=== PATIENT | female | born 1985 | race Caucasian/White ===

== ENCOUNTER 2018-06-01 22:10 | Emergency (ER) | payer BC ==
[2018-06-01] MEDS ORDERED: Sodium Chloride 0.9% 10 ML Syringe FLUSH PRN (22:53)
--- NOTE | 2018-06-01 22:59 | EDM.PDOC ---
ED HPI GENERAL MEDICAL PROBLEM - General Chief Complaint: Chest Pain Stated Complaint: [facility] Time Seen by Provider: 06/01/18 22:32 Source of Information: Reports: Patient, RN Notes Reviewed - History of Present Illness INITIAL COMMENTS - FREE TEXT/NARRATIVE: 32-year-old female with onset of chest discomfort at home a couple of hours ago. She had sudden onset of left upper anterior chest discomfort. In pain with deep breathing, mild shortness of breath. Was given some nitroglycerin and aspirin by EMS in route by ambulance. Did help the discomfort somewhat but she still does rate that at about 4. She is not diabetic, has no known history for hypertension coronary artery disease. She does smoke. No recent cough fever or chills. Treatments OUTSIDE PHYSICAL DAMAGE APPRAISER: Reports: Aspirin, EKG, IV/IO Left Chest Pain Score (Numeric/FACES): 4 - Related Data Allergies Allergy/AdvReac Type Severity Reaction Status Date / Time No Known Allergies Allergy Verified 06/01/18 22:21 Home Meds: Home Meds . [No Known Home Meds] 06/01/18 [History] ED ROS GENERAL - Review of Systems Review Of Systems: See Below Constitutional: Reports: Diaphoresis (Mild,:). Denies: Fever, Chills HEENT: Denies: Sinus Problem, Throat Pain Respiratory: Reports: Shortness of Breath, Pleuritic Chest Pain. Denies: Cough Cardiovascular: Reports: Chest Pain GI/Abdominal: Reports: Nausea, Vomiting (He did have a few dry heaves, that is now better). Denies: Abdominal Pain Musculoskeletal: Denies: Neck Pain, Shoulder Pain, Arm Pain Skin: Denies: Rash Neurological: Reports: Dizziness (Now better) ED EXAM, GENERAL - Physical Exam Exam: See Below General Appearance: Alert, Mild Distress Eye Exam: Bilateral Eye: PERRL Throat/Mouth: Normal Inspection, Normal Oropharynx Head: Atraumatic Neck: Supple, Full Range of Motion. No: Lymphadenopathy (L), Lymphadenopathy (R ) Respiratory/Chest: No Respiratory Distress, Lungs Clear, Normal Breath Sounds, Other (Quite marked tenderness of the left upper anterior chest below the mid clavicle and also the left sternal border). No: Rales, Rhonchi, Wheezing Cardiovascular: Regular Rate, Rhythm GI/Abdominal: Soft, Non-Tender Extremities: Normal Inspection. No: Pedal Edema, Leg Pain, Increased Warmth, Redness Neurological: Alert, Oriented, No Motor/Sensory Deficits Skin Exam: Warm, Dry EKG INTERPRETATION EKG Date: 06/01/18 Rhythm: NSR [place]: Normal P-Wave: Present QRS: Normal ST-T: Other (T-wave inversion noted in lead [address] elevation or depression.) Course - Vital Signs Last Recorded V/S: Last Vital Signs Temp 99.4 F 06/01/18 22:15 Pulse 86 06/01/18 22:15 Resp 18 06/01/18 22:15 BP 128/75 06/01/18 22:15 Pulse Ox 98 06/01/18 22:15 - Orders/Labs/Meds Orders: Active Orders 24 hr Category Date Time Status EKG 12 Lead [EKG Documentation Completion] [RC] STAT Care 06/01/18 22:53 Active Peripheral IV Care [RC] . DIRECTED Care 06/01/18 22:54 Active Chest 1V Frontal [CR] Stat Exams 06/01/18 22:53 Taken Peripheral IV Insertion Adult [OM.PC] Stat Oth 06/01/18 22:53 Ordered Labs: Laboratory Tests 06/01/18 06/01/18 06/01/18 Range/Units 23:05 23:05 23:05 WBC 8.22 (3.98-10.04) K/mm3 RBC 4.56 (3.98-5.22) M/mm3 Hgb 13.2 (11.2-15.7) gm/L Hct 39.8 (34.1-44.9) % MCV 87.3 (79.4-94.8) fl MCH 28.9 (25.6-32.2) pg MCHC 33.2 (32.2-35.5) g/dl RDW Std Deviation 40.1 (36.4-46.3) fL Plt Count 291 (182-369) K/mm3 MPV 9.7 (9.4-12.3) fl Neut % (Auto) 52.6 (34.0-71.1) % Lymph % (Auto) 36.0 (19.3-51.7) % [place] % (Auto) 7.8 (4.7-12.5) % Eos % (Auto) 3.0 (0.7-5.8) Baso % (Auto) 0.6 (0.1-1.2) % Neut # (Auto) 4.32 (1.56-6.13) K/mm3 Lymph # (Auto) 2.96 (1.18-3.74) K/mm3 [place] # (Auto) 0.64 H (0.24-0.36) K/mm3 Eos # (Auto) 0.25 (0.04-0.36) K/mm3 Baso # (Auto) 0.05 (0.01-0.08) K/mm3 D-Dimer, Quantitative < 0.19 L (0.19-0.50) mg/L Sodium 139 (136-145) mEq/L Potassium 3.4 L (3.5-5.1) mEq/L Chloride 106 (98-107) mEq/L Carbon Dioxide 27 (21-32) mEq/L Anion Gap 9.4 (5-15) BUN 8 (7-18) mg/dL Creatinine 0.8 (0.55-1.02) mg/dL Est Cr Clr Drug Dosing 87.99 mL/min Estimated GFR (MDRD) > 60 (>60) mL/min BUN/Creatinine Ratio 10.0 L (14-18) Glucose 122 H (74-106) mg/dL Calcium 8.8 (8.5-10.1) mg/dL Total Bilirubin 0.2 (0.2-1.0) mg/dL AST 21 (15-37) U/L ALT 38 (14-59) U/L Alkaline Phosphatase 65 (46-116) U/L Troponin I < 0.017 (0.00-0.056) ng/mL Total Protein 6.7 (6.4-8.2) g/dl Albumin 3.5 (3.4-5.0) g/dl Globulin 3.2 gm/dL Albumin/Globulin Ratio 1.1 (1-2) Meds: Medications Discontinued Medications Generic Name Dose Route Start Last Admin Trade Name Freq PRN Reason Stop Dose Admin Ketorolac Tromethamine 30 mg 06/01/18 23:00 06/01/18 23:18 Toradol IVPUSH 30 mg ONETIME JEIMY Administration Sodium Chloride 10 ml 06/01/18 22:53 06/01/18 23:21 Saline Flush FLUSH 10 ml ASDIRECTED PRN Administration Keep Vein Open - Re-Assessments/Exams Free Text/Narrative Re-Assessment/Exam: 06/02/18 03:54 D-dimer, troponin did come back normal. EKG did show T-wave inversion in lead 3 , no ST elevation or depression. Sinus rhythm, no ectopy. Other labs were relatively normal. Patient was resting comfortably at time of reexam. Chest x- ray also normal. Discharge instructions as documented. 06/02/18 03:55 Departure - Departure Time of Disposition: 00:35 Disposition: Home, Self-Care 01 Condition: Fair Clinical Impression: Atypical chest pain, Chest wall pain Instructions: Chest Wall Pain, [id number] Referrals: PCP,None [Primary Care Provider] - Forms: ED Department Discharge Additional Instructions: Rest, avoid heavy lifting, you may alternate ice and heat to area of chest discomfort if that returns, Advil or ibuprofen 600 mg 2-3 times daily if needed for further discomfort, follow up clinic if symptoms not continuing to resolve as expected, return to ED as needed if symptoms worsening in any way. - My Orders Last 24 Hours: My Active Orders 06/01/18 22:53 EKG 12 Lead [EKG Documentation Completion] [RC] STAT Chest 1V Frontal [CR] Stat Peripheral IV Insertion Adult [OM.PC] Stat 06/01/18 22:54 Peripheral IV Care [RC] . DIRECTED - Assessment/Plan Last 24 Hours: My Active Orders 06/01/18 22:53 EKG 12 Lead [EKG Documentation Completion] [RC] STAT Chest 1V Frontal [CR] Stat Peripheral IV Insertion Adult [OM.PC] Stat 06/01/18 22:54 Peripheral IV Care [RC] . DIRECTED
[2018-06-01] MEDS ORDERED: Ketorolac 30 MG/ML SDV IVPUSH SCH (23:00)
--- NOTE | 2018-06-03 11:43 | CR ---
Chest: Portable view of the chest was obtained. Comparison: No prior chest x-ray. Cardiac silhouette and mediastinum are normal. Lungs are clear. Bony structures are grossly intact. Impression: 1. Nothing acute is seen on portable chest x-ray. Diagnostic code #1
== END 2018-06-02 00:54 | disposition home or self-care (01) ==
LOC: JD.ED 22:10
DX: R07.89 Other chest pain (principal)
CPT/HCPCS: 36415; 71045; 80053; 84484; 85025; 85379; 93005; 99285; J1885; J7050; 93010; 99284-25

== ENCOUNTER 2019-02-04 20:30 | Emergency (ER) | payer BC ==
--- NOTE | 2019-02-04 20:54 | EDM.PDOC ---
ED HPI GENERAL MEDICAL PROBLEM - General Chief Complaint: Chest Pain Stated Complaint: CHEST PAIN/ARM PAIN/NECK PAIN Time Seen by Provider: 02/04/19 20:45 Source of Information: Reports: Patient History Limitations: Reports: No Limitations - History of Present Illness INITIAL COMMENTS - FREE TEXT/NARRATIVE: 33-year-old female presents to the ED with diffuse upper anterior chest pain that started about an hour ago. She describes the pain as quite sharp and stabbing or pleuritic. She has had a mild cough but it is nonproductive. No associated fever or chills at this time although she believes she was running a fever intermittently. She states she is an asthmatic but does not use an inhaler. She has not noticed any increase in wheezing. She is a cigarette smoker. She admits to being under a great deal of stress lately. She is on Prozac and Wellbutrin and takes hydralazine at bedtime to help sleep. She did not take anything for current pain relief. She denies any possibility of . Vital signs show respiratory rate of 16. Minute and sats of 98% on room air. She has no risk factors for DVT. Onset: Today Onset Date: 02/04/19 Onset Time: 19:50 Duration: Minutes: Location: Reports: Chest (Central chest pressure discomfort particularly upper chest over the sternomanubrial joint. Pain radiates across her chest into both shoulders and into the back of her neck. It has a strong pleuritic component she reports when she deep brace. She does not appear to be in any significant distress.) Quality: Reports: Ache, Sharp, Stabbing, Other Severity: Moderate (Preliminary headache type chest pain) Improves with: Reports: None (She has taken nothing for the pain.) Worsens with: Reports: Movement Context: Denies: Activity, Exercise (Movements make it worse and deep breathing makes it worse.), Lifting, Sick Contact, Trauma Associated Symptoms: Reports: Chest Pain, Cough, Fever/Chills, Shortness of Breath. Denies: No Other Symptoms (See history of present illness), Confusion, cough w sputum, Diaphoresis, Headaches, Loss of Appetite, Malaise, Nausea/ Vomiting, Rash, Seizure, Syncope, Weakness Treatments UNIV[employer] RECRUITER: Reports: Other (see below) (None.) Chest Pain Score (Numeric/FACES): 6 - Related Data Allergies Allergy/AdvReac Type Severity Reaction Status Date / Time nabumetone Allergy Rash Verified 02/04/19 21:28 Home Meds: Home Meds Albuterol [Ventolin HFA] 2 puff INH Q3H PRN #1 mdi 02/04/19 [Rx] FLUoxetine HCl [Fluoxetine HCl] 40 mg PO DAILY 02/04/19 [History] buPROPion [buPROPion XL] 150 mg PO DAILY 02/04/19 [History] hydrOXYzine HCl [hydrOXYzine] 25 mg PO Q4HR PRN 02/04/19 [History] Past Medical History Psychiatric History: Reports: Anxiety, Depression Social & Family History - Living Situation & Occupation Living situation: Reports: 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 Denies: Fever, Chills, Malaise, Weakness, Fatigue, Weight Loss HEENT: Reports: No Symptoms Respiratory: Reports: Shortness of Breath, Pleuritic Chest Pain, Cough. Denies : Wheezing, Sputum, Hemoptysis (Nonproductive) Cardiovascular: Reports: Chest Pain (Central upper midsternal chest pressure discomfort that came on about an hour ago and seems to be strongly pleuritic.). Denies: Blood Pressure Problem, Claudication, Dyspnea on Exertion, Edema, Lightheadedness, Orthopnea Endocrine: Reports: No Symptoms GI/Abdominal: Reports: No Symptoms : Reports: No Symptoms Musculoskeletal: Reports: No Symptoms, Other Skin: Reports: No Symptoms (No abnormalities on palpation of the thoracic spine and rib heads.) Neurological: Reports: No Symptoms Psychiatric: Reports: Anxiety, Depression Hematologic/Lymphatic: Reports: No Symptoms Immunologic: Reports: No Symptoms (By history but she is does does not appear to be anxious at this time) ED EXAM, GENERAL - Physical Exam Exam: See Below Exam Limited By: No Limitations General Appearance: Alert, WD/WN, Anxious (Mildly anxious about the anterior chest pain. Concern about her heart.), Mild Distress Eye Exam: Bilateral Eye: Normal Inspection Throat/Mouth: Normal Inspection, Normal Lips, Normal Oropharynx Head: Atraumatic, Normocephalic Neck: Normal Inspection, Supple, Non-Tender, Full Range of Motion. No: Carotid Bruit, Lymphadenopathy (L), Lymphadenopathy (R) Respiratory/Chest: No Respiratory Distress, Lungs Clear, Normal Breath Sounds, No Accessory Muscle Use, Other (Chest wall tenderness identified on the right side from ribs 56 and 7. On the left side ribs 345 and 6 are exquisitely tender in the midclavicular line.). No: Wheezing Cardiovascular: Normal Peripheral Pulses, Regular Rate, Rhythm, No Edema, No Murmur, No Rub Peripheral Pulses: 3+: Posterior Tibial (L), Posterior Tibial (R), Dorsalis Pedis (L), Dorsalis Pedis (R) GI/Abdominal: Normal Bowel Sounds, Soft, Non-Tender, No Organomegaly, No Abnormal Bruit, No Mass, Pelvis Stable. No: Guarding, Rigid, Rebound, Tender Back Exam: Normal Inspection, Full Range of Motion. No: CVA Tenderness (L), CVA Tenderness (R) Extremities: Normal Inspection, Normal Range of Motion, Non-Tender, No Pedal Edema, Normal Capillary Refill Neurological: Alert, Oriented, CN II-XII Intact, Normal Cognition Psychiatric: Normal Affect, Normal Mood Skin Exam: Warm, Dry, Intact, Normal Color, No Rash EKG INTERPRETATION EKG Date: 02/04/19 Time: 20:38 Rhythm: NSR Rate (Beats/Min): 88 [place]: Normal P-Wave: Enlarged (Consider left atrial hypertrophy.) ST-T: Other (There is T1 wave inversion in lead V1 only no signs of ischemia) EKG Interpretation Comments: Borderline ECG. Course - Vital Signs Last Recorded V/S: Last Vital Signs Temp 36.8 C 02/04/19 20:35 Pulse 80 02/04/19 20:35 Resp 16 02/04/19 20:35 BP 126/86 02/04/19 20:35 Pulse Ox 100 02/04/19 21:23 - Orders/Labs/Meds Orders: Active Orders 24 hr Category Date Time Status EKG 12 Lead [EKG Documentation Completion] [RC] STAT Care 02/04/19 21:34 Active RT Aerosol Therapy [RC] ASDIRECTED Care 02/04/19 21:23 Active RT Post Treatment Assessment [RC] Click to Edit Care 02/04/19 21:57 Active RT Pre-Treatment Assessment [RC] Click to Edit Care 02/04/19 21:57 Active Chest 1V Frontal [CR] Stat Exams 02/04/19 20:48 Taken Meds: Medications Discontinued Medications Generic Name Dose Route Start Last Admin Trade Name Jignesh PRN Reason Stop Dose Admin Albuterol 8.5 gm 02/04/19 21:57 Proventil Hfa INH 02/04/19 21:58 ONETIME ONE Albuterol 6.7 gm 02/04/19 22:00 02/04/19 22:04 Proventil Hfa INH 02/04/19 22:01 2 puff ONETIME ONE Administration Albuterol/Ipratropium 3 ml 02/04/19 21:22 02/04/19 21:31 Duoneb 3.0-0.5 Mg/3 Ml NEB 02/04/19 21:23 3 ml ONETIME ONE Administration Ibuprofen 800 mg 02/04/19 21:23 02/04/19 21:28 Motrin PO 02/04/19 21:24 800 mg ONETIME ONE Administration Lorazepam 1 mg 02/04/19 21:23 02/04/19 21:28 Ativan PO 02/04/19 21:24 1 mg ONETIME ONE Administration - Radiology Interpretation Free Text/Narrative:: 33-year-old female presents to the ED with acute onset of central upper mid chest pain that does not radiate to her back. Patient history she has problems with anxiety disorder and a history of asthma although she has not used her inhaler for a lengthy period of time. Pain started about an hour ago and she rates it as 8 out of 10. She does not feel subjectively short of breath. Denies cough or sputum production. Lungs are clear to auscultation percussion without any wheezing. Heart sounds are normal. ECG is normal as well. Plan : Portable chest x-ray to be done. If this is normal will proceed with Ativan 1 mg by mouth and Motrin 600 mg by mouth for pain relief. - Re-Assessments/Exams Free Text/Narrative Re-Assessment/Exam: 02/04/19 21:19 portable chest x-ray is done. It is essentially within normal limits per portable technique. It does suggest mild diffuse vascular congestion pattern but I suspect it is magnified. 02/04/19 21:24 still feeling somewhat anxious. Central chest pressure continues. Will try DuoNeb since she has a history of asthma in case she has some degree of bronchospasm. There certainly is an overlying anxiety component to her symptoms unable therefore give her Ativan 1 mg by mouth. Chest wall pain elicited on examination. Therefore given Motrin 800 mg by mouth. 02/04/19 21:52 Patient is feeling much improved after DuoNeb peak treatment. She states she was wheezing for a period of time after the DuoNeb was given but most of the pressure in her central chest went away after DuoNeb treatment. She does not currently have a pro-air inhaler which she usually has. I will therefore provide her an albuterol inhaler from the ED since the drug stores are now closed. She'll continue Aleve 2 tablets every 8 hours as needed for chest wall pain. Departure - Departure Time of Disposition: 21:56 Disposition: Home, Self-Care 01 Reason for Transfer *Q: Other Condition: Fair Clinical Impression: Non-cardiac chest pain, Bronchospasm, acute, Acute chest wall pain, Chest wall pain Prescriptions: Albuterol [Ventolin HFA] 2 puff INH Q3H PRN #1 mdi PRN Reason: Chest pain/wheezing Instructions: Bronchospasm, Adult Referrals: Collette Fuentes PA-C [Primary Care Provider] - Forms: ED Department Discharge Additional Instructions: Evaluation in the emergency room today in regards to development of upper central chest pressure discomfort about an hour prior to coming to the ED. There is some underlying stress and anxiety which may or may not be contributing to this disorder. Examination was completely normal with no wheezing and good air entry to both lung valdez. Heart tracing proved to be normal and chest x-ray was normal as well. Identified diffuse chest wall pain on palpation of ribs 5 and 6 particularly on the right side and ribs 4,5 and 6 on the left side. This indicates a inflammation of the lining of the ribs in this area which is usually viral and can last up to 6 weeks. She is of Aleve 2 tablets every 8 hours as needed for relief of chest wall pain. You're given Motrin 800 mg in the ED tonight. You're chest pressure discomfort improved a good deal after DuoNeb treatment suggesting that the pressure was due to bronchospasm. As you have indicated you have a history of asthma but haven't needed to her inhaler for a lengthy period of time and also have no inhaler at present. Therefore you were given a albuterol inhaler from the ED tonight as the drug stores are now closed. Prescription written for Ventolin inhaler 2 puffs every 3 hours as needed for relief of similar type pain and/or wheezing. He did also receive an Ativan 1 mg tablet in the ED for relief of anxiety. Do not take the hydroxyzine tonight. Continue all other medications as before. Follow-up with personal care provider as needed. - My Orders Last 24 Hours: My Active Orders 02/04/19 20:48 Chest 1V Frontal [CR] Stat 02/04/19 21:23 RT Aerosol Therapy [RC] ASDIRECTED 02/04/19 21:34 EKG 12 Lead [EKG Documentation Completion] [RC] STAT 02/04/19 21:57 RT Post Treatment Assessment [RC] Click to Edit RT Pre-Treatment Assessment [RC] Click to Edit - Assessment/Plan Last 24 Hours: My Active Orders 02/04/19 20:48 Chest 1V Frontal [CR] Stat 02/04/19 21:23 RT Aerosol Therapy [RC] ASDIRECTED 02/04/19 21:34 EKG 12 Lead [EKG Documentation Completion] [RC] STAT 02/04/19 21:57 RT Post Treatment Assessment [RC] Click to Edit RT Pre-Treatment Assessment [RC] Click to Edit
[2019-02-04] MEDS ORDERED: Albuterol/Ipratropium 3.0-0.5 MG/3 ML Neb Soln NEB ONE (21:22)
[2019-02-04] MEDS ORDERED: Ibuprofen 800 MG Tab PO ONE (21:23)
[2019-02-04] MEDS ORDERED: LORazepam 1 MG Tab PO ONE (21:23)
[2019-02-04] MEDS ORDERED: Albuterol 6.7 GM Inhaler INH ONE ×2 (21:57→22:00)
--- NOTE | 2019-02-05 09:11 | CR ---
Chest: Portable view of the chest was obtained. Comparison: Prior chest x-ray of 06/01/18. Heart size and mediastinum are normal. Lungs are clear. Bony structures are unremarkable. Impression: 1. Nothing acute is appreciated on portable chest x-ray. Diagnostic code #1
== END 2019-02-04 22:11 | disposition home or self-care (01) ==
LOC: JD.ED 20:30
DX: J98.01 Acute bronchospasm (principal)
CPT/HCPCS: 71045; 93005; 94640; 99285; A9270; 93010; J7620-GY